=== PATIENT | male | born 1970 | race Caucasian/White ===

== ENCOUNTER 2023-05-17 21:38 | Emergency (ER) | payer OTHER, SELFPAY ==
[2023-05-17 21:39] VITALS: BMI 27.4
[2023-05-17 21:42] VITALS: BP 156/92
[2023-05-17 22:31] LABS: % Basophils 0.4 % (0-2); % Eosinophils 2.4 % (0-6); % Immature Granulocytes 0.5 % (0-0.5); % Lymphocytes 38.1 % (20.5-51.1); % Monocytes 6.7 % (1.7-9.3); % Neutrophils 51.9 % (42.2-75.2); Absolute Basophils 0.1 10^3/uL (0-0.2); Absolute Eosinophils 0.3 10^3/uL (0-0.7); Absolute Immature Granulocytes 0.1 10^3/uL (0-0.05); Absolute Lymphocytes 4.6 10^3/uL (1.2-3.4); Absolute Monocytes 0.8 10^3/uL (0.1-0.6); Absolute Neutrophils 6.3 10^3/uL (1.4-6.5); Hematocrit 36.8 % (39.0-52.0); Hemoglobin 13.5 g/dL (13.0-18.0); Mean Corp Hgb Conc. 36.7 g/dL (33.0-37.0); Mean Corpuscular Volume 92.7 fL (80.0-94.0); Mean Platelet Volume 10.5 fL (7.4-10.4); Nucleated Red Blood Cells % 0 % (-); Platelet Count 279 10^3/uL (130-400); Red Blood Cell Count 3.97 10^6/uL (4.70-6.10); Red Cell Dist. Width 12.7 % (11.5-14.5); White Blood Cell Count 12.1 10^3/uL (4.8-10.8)
[2023-05-17 22:47] LABS: ALT (SGPT) 18 U/L (0-50); AST (SGOT) 26 U/L (17-59); Albumin 4.4 g/dl (3.5-5.0); Alcohol 152 mg/dl; Alkaline Phosphatase 91 U/L (38-126); Blood Urea Nitrogen 14 mg/dl (9-20); Calcium 8.7 mg/dl (8.4-10.2); Carbon Dioxide 20 mmol/L (22-30); Chloride 111 mmol/L (98-107); Estimated Creatinine Clearance 84 ml/min; Glucose 120 mg/dl (70-99); Potassium 3.9 mmol/L (3.5-5.1); Sodium 141 mmol/L (135-145); Total Bilirubin 0.4 mg/dl (0.2-1.3); Total Protein 6.6 g/dl (6.3-8.2); eGFR > 60.00
--- NOTE | 2023-05-17 23:12 | ED.GENMED ---
History of Present Illness
General
Chief Complaint: Withdrawal Symptoms
Source: patient
Exam Limitations: none
Time Seen by Provider: 05/17/23 22:25
Nursing documentation reviewed up to this point in time: agreed with
Travel History
Have you had any contact with someone who has COVID-19?: No
Do you have any symptoms of coronavirus? Fever > 100 degrees, chills, cough, shortness of breath, sore throat, loss of taste or smell, muscle aches, or headache?: No
History of Present Illness
History of Present Illness:
Pleasant 52-year-old male presents with acute alcohol withdrawal. Patient states that he has been drinking 2 pints of whiskey per day for the last 5 weeks. Patient was recently admitted and discharged from a psychiatric facility for dual alcohol
withdrawal and suicidal ideation. He states that after discharge, he started drinking again. He currently denies suicidal or homicidal ideation, intent, or plan. He lives at home with his and son. He is a musician. He is a smoker. Denies
illicit drug use. Presents wanting help for his alcohol abuse. States that he had a withdrawal seizure earlier this evening. He drank just prior to his arrival here.
Review of Systems
Review of Systems
Allergies reviewed?: Yes
All Other Systems: ROS reviewed and negative except as documented in HPI and ROS
Constitutional: Reports no symptoms
EENT: Reports no symptoms
Respiratory: Reports no symptoms
Cardiac: Reports no symptoms
ABD/GI: Reports no symptoms
: Reports no symptoms
Musculoskeletal: Reports no symptoms
Skin: Reports no symptoms
Neurological: Reports no symptoms
Endocrine: Reports no symptoms
Hematologic/Lymphatic: Reports no symptoms
Psychiatric: Reports anxiety; Denies suicidal
Phy Exam
General Physical Exam
General Presentation: well appearing and no apparent distress
General Skin: warm and dry
General Habitus: normal
General Mental: alert
General Hydration: appears well hydrated
ENT Exam
ENT Exam: EOMI, pharynx normal, neck supple and normocephalic
Eye Exam
Eye Exam: PERRL, cornea clear and conjunctiva normal
Cardiovascular Exam
Cardiovascular Exam: regular rate/rhythm, no edema, no murmur and normal peripheral pulses
Pulmonary Exam
Pulmonary Exam: lungs clear, no respiratory distress, no rales, no crackles, no rhonchi, no stridor, no wheezing and no cough
Gastrointestinal Exam
Gastrointestinal Exam: normal bowel sounds, non tender, soft, no organomegaly, no pulsatile mass and non distended
Neurological Exam
Neurological Exam: alert, oriented x3, no motor deficits and speech normal
Musculoskeletal Exam
Musculoskeletal Exam: full ROM and no edema
Skin Exam
Skin Exam: normal color, warm/dry, no rash and no petechia
Psychiatric Exam
Psychiatric Exam: normal mood/affect
Scores
Withdrawal Assessment of Alcohol
Withdrawal Assessment Completed?: Yes
Nausea and Vomiting: No nausea and no vomiting
Tactile Disturbances: None
Tremor: No tremor
Auditory Disturbances: Not present
Paroxysmal Sweats: No sweat visible
Visual Disturbances: Not present
Anxiety: Mild anxiety
Headache, Fullness in Head: Not present
Agitation: Moderately fidgety and restless
Orientation and clouding of sensorium: Oriented and can do serial additions
Total CIWA Score: 5
Alcohol Withdrawal Medication Recommendation: Equal to MSAS Score 0-4. Monitor & re-assess q2hrs, NO MEDICATION NEEDED
Course
Orders/Labs/Results
Orders:
Orders
05/17/23 22:23
Alcohol Urgent
Complete Blood Count/With Diff Urgent
Comprehensive Metabolic Panel Urgent
05/17/23 23:00
0.9% Sodium Chloride 1000 ml [Nss] 1,000 ml Mvi, Adult [Multivitamin] 10 ml Thiamine Injection 100 mg IV 250 mls/hr
Abnormal Lab Results
05/17/23
22:23
WBC 12.1 H 10^3/uL
(4.8-10.8)
RBC 3.97 L 10^6/uL
(4.70-6.10)
Hct 36.8 L %
(39.0-52.0)
MCH 34.0 H pg
(27.0-31.0)
MPV 10.5 H fL
(7.4-10.4)
Abs Immat Gran (auto) 0.1 H 10^3/uL
(0-0.05)
Absolute Lymphs (auto) 4.6 H 10^3/uL
(1.2-3.4)
Absolute Monos (auto) 0.8 H 10^3/uL
(0.1-0.6)
Chloride 111 H mmol/L
(98-107)
Carbon Dioxide 20 L mmol/L
(22-30)
Glucose 120 H mg/dl
(70-99)
05/17/23 22:23
05/17/23 22:23
Vital Signs
Initial and Last Documented VS:
Initial Vital Signs
Temp Pulse Resp BP Pulse Ox
99.2 F 115 26 156/92 99
05/17/23 21:42 05/17/23 21:42 05/17/23 21:42 05/17/23 21:42 05/17/23 21:42
Last Documented Vital Signs
Temp Pulse Resp BP Pulse Ox
99.2 F 97 19 156/92 98
05/17/23 21:42 05/17/23 23:45 05/17/23 23:30 05/17/23 21:42 05/17/23 23:45
Warm Hand Off
Was warm handoff contacted?: Yes
*Critical Care Note
Total Time (30-74mins, 75-104mins- exclusive of procedures): Not Applicable
Patient Management
Social determinants of health affecting care: Living situation, Substance abuse and Financial situation
Update Note
Update Note:
05/18/2023 0007 AM: Yen from [facility] spoke with patient. Patient does not wish to stay in the hospital tonight. She was able to give him resources for [facility] and [facility]. This information was texted to him. Patient has a
safe place to go tonight. He will check into rehab tomorrow morning. Discussed this plan with patient who is in agreement.
ED Attending Note
-
Portions of this chart may have been created with voice recognition software.� Occasional wrong word or��sound alike� substitutions may have occurred due to the inherent limitations of voice recognition software.
Discharge Plan
Departure
Patient Disposition: Home (Routine Discharge)
Date of Disposition: 05/18/23
Time of Disposition: 00:08
Patient with high blood pressure during this ER visit?: Yes
Condition: Good
Discharge Problem:
Alcohol abuse
Instructions: Alcohol Use Disorder (DC), BLOOD PRESSURE
Prescriptions:
New
lorazepam [Ativan] 0.5 mg tablet
0.5 mg PO TID PRN (Reason: alcohol withdrawal) Qty: 7 0RF
No Action
atorvastatin 10 mg Tablet
10 mg PO DAILY
lisinopril 10 mg Tablet
10 mg PO DAILY
Referrals:
Rosaura Blackwell MD [Family Provider] -
Activity Restrictions/Additional Instructions:
Please follow-up with [facility] as discussed. You should receive a text message from them given information about [facility], and [facility] treatment facilities. Please return to the ER with any changing or worsening of symptoms.
It was a pleasure meeting you and taking part in your care. We hope for your continued healing and wellness.
Please read discharge instructions in their entirety. However, they are for general education and may not describe your exact diagnosis at discharge. Information on your ER visit and medical conditions were discussed with you along with appropriate
follow up information...
If indicated, please take your medications as instructed and indicated on discharge paperwork.
Please schedule a follow up appointment as directed. Call to schedule an appointment
Please return to the emergency department with ANY change in, persisting, or worsening of symptoms. If any of your symptoms do not improve, or persist, or become more severe within 6-12 hours, please return to the emergency department for further
care.
Please return to the emergency department if you develop a headache, neck pain/stiffness, fever greater than 100.4F, chest pain, shortness of breath, persistent nausea, vomiting, slurred speech, difficulty walking, numbness/tingling, weakness, signs
of infection or any other symptoms that are worrisome to you.
If you have any questions or concerns please do not hesitate to call the Hospital at .
Interventions
Interventions:
*Risk Screen - Suicide Last Done: 05/17/23 21:42
*General Assessment Last Done: 05/17/23 21:42
*Neglect/Abuse Screening Last Done: 05/17/23 21:42
ED- Fall Risk Assessment Last Done: 05/17/23 22:19
ED- Neurological Assessment Last Done: 05/17/23 22:19
ED-Psychological Assessment Last Done: 05/17/23 22:19
[2023-05-17] MEDS: MULTIVITAMIN 1011 ML IV (23:22)
[2023-05-17] MEDS: MULTIVITAMIN 1011 MG IV (23:22)
== END 2023-05-18 02:16 | disposition home or self-care (01) ==
LOC: EMR 21:38
PROVIDERS: EMERGENCY PHYSICIAN Student in an Organized Health Care Education/Training Program; FAMILY PHYSICIAN Family Medicine
DX: F10.10 Alcohol abuse, uncomplicated (principal); F17.200 Nicotine dependence, unspecified, uncomplicated; R03.0 Elevated blood-pressure reading, without diagnosis of hypertension
CPT/HCPCS: 99284; 96365; 96366 ×3; 80053; 82077; 85025